=== PATIENT | female | born 1965 | race Caucasian/White ===

== ENCOUNTER → 2018-06-25 | Outpatient (CLI) | payer MEDICARE ==
--- NOTE | 2018-06-25 10:14 | KCIC ---
Indication: Chronic pain, history of rheumatoid arthritis TECHNIQUE: 2 views of the left shoulder COMPARISON: None Findings/ impression: No acute fracture or dislocation. Marginal hanging osteophyte is seen originating in the inferior aspect of the head of the humerus. Acromioclavicular joint is within normal limits. Visualized left lung is clear. IMPRESSION: As above. Electronically signed by: Poncho Long DO (06/25/2018 10:10 AM) [facility]
--- NOTE | 2018-06-25 10:17 | KCIC ---
Indication: Chronic pain, rheumatoid arthritis TECHNIQUE: Multiple views of the bilateral knees COMPARISON: None FINDINGS: Right side: No acute fracture or dislocation. Severe medial and moderate patellofemoral joint compartment space narrowing is seen. No suprapatellar effusion. Well-circumscribed calcific densities/bony fragments are seen in the suprapatellar space. Left side: Mild medial and patellofemoral joint compartment space narrowing seen. No acute fractures or dislocation. No suprapatellar effusion. IMPRESSION: 1. 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 Mild medial and patellofemoral compartment left-sided osteoarthritis. 2. Multiple most likely loose bodies in the right suprapatellar space. Electronically signed by: Poncho Long DO (06/25/2018 10:14 AM) [facility]
--- NOTE | 2018-06-25 10:18 | KCIC ---
Indication: Chronic pain, rheumatoid arthritis TECHNIQUE: 2 views of the left hip joint COMPARISON: None Findings/ impression: No acute fractures or dislocation. There is moderate medial joint compartment space narrowing seen in the hip joint. No loss of space in the weightbearing aspect of the hip joint. Electronically signed by: Poncho Long DO (06/25/2018 10:15 AM) [facility]
--- NOTE | 2018-06-25 10:19 | KCIC ---
Indication: Chronic pain, bilateral arthritis TECHNIQUE: 2 views of the right hip COMPARISON: None Findings/ impression: No acute fractures or dislocation. There is no significant joint space narrowing or productive changes. Electronically signed by: Poncho Long DO (06/25/2018 10:15 AM) [facility]
--- NOTE | 2018-06-25 10:21 | KCIC ---
Indication: Chronic pain, bilateral arthritis TECHNIQUE: Total 6 views of the bilateral hands COMPARISON: None FINDINGS: Left hand: No acute fracture or dislocation. Mild polyarticular DIP joint space narrowing with overhanging osteophyte formation. No periarticular erosions. Mild first CMC joint osteoarthritis. Right hand: No acute fracture or dislocation. Mild first CMC joint osteoarthritis. Mild polyarticular DIP joint space narrowing with over hanging osteophyte formation. No periarticular erosions. IMPRESSION: 1. 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 Electronically signed by: Poncho Long DO (06/25/2018 10:18 AM) [facility]
--- NOTE | 2018-06-25 10:24 | KCIC ---
Indication: Chronic pain, bilateral arthritis TECHNIQUE: Total 6 views of the bilateral foot COMPARISON: None FINDINGS: Right foot: No acute fracture or dislocation. Moderate midfoot osteoarthritis. Small plantar calcaneal spur. Left foot: No acute fracture or dislocation. Moderate midfoot osteoarthritis. small plantar calcaneal spur. IMPRESSION: As above. Electronically signed by: Poncho Long DO (06/25/2018 10:20 AM) [facility]
== END | disposition home or self-care (01) ==
LOC: KCIC 08:38
PROVIDERS: ATTEND Internal Medicine Rheumatology
DX: M25.712 Osteophyte, left shoulder (principal); M17.0 Bilateral primary osteoarthritis of knee; M19.042 Primary osteoarthritis, left hand; M19.041 Primary osteoarthritis, right hand; M25.742 Osteophyte, left hand; M19.072 Primary osteoarthritis, left ankle and foot; M19.071 Primary osteoarthritis, right ankle and foot; M77.32 Calcaneal spur, left foot; M77.31 Calcaneal spur, right foot; G89.29 Other chronic pain
CPT/HCPCS: 73030; 73130; 73502; 73562; 73630